=== PATIENT | male | born 1965 | race Two or more races ===

== ENCOUNTER 2018-06-25 23:25 | Emergency (ER) | payer MEDICAID ==
[~2018-06-25] VITALS: Ht 180.3 cm; Wt 88.5 kg
[2018-06-26 00:14] VITALS: BP 162/100
== END 2018-06-26 00:55 | disposition left against medical advice (07) ==
LOC: EDBD 23:25 → ER 23:31
DX: R07.81 Pleurodynia (principal); Z53.21 Procedure and treatment not carried out due to patient leaving prior to being seen by health care provider